=== PATIENT | male | born 1955 | race African-American/Black ===

== ENCOUNTER 2017-06-25 18:54 | Emergency (ER) | payer OTHER, SELFPAY ==
[2017-06-25] MEDS ORDERED: Ibuprofen 200 MG TAB ONE (19:35)
[2017-06-25] MEDS ORDERED: Acetaminophen 500 MG TAB ONE (19:35)
--- NOTE | 2017-06-25 21:19 | RAD ---
LUMBAR SPINE THREE VIEW 06/25/17 HISTORY: Low back pain. COMPARISON: None. FINDINGS: No acute fracture. No malalignment. Mild narrowing L4-5 and L5-S1. Large anterior flowing osteophytes of L3-L5. No abnormal calcifications projecting over the renal shadows. IMPRESSION: No acute abnormality. POS: JOHN
== END 2017-06-25 20:24 | disposition home or self-care (01) ==
LOC: NAV ERS 18:54
DX: S33.5XXA Sprain of ligaments of lumbar spine, initial encounter (principal); F17.210 Nicotine dependence, cigarettes, uncomplicated; I10 Essential (primary) hypertension; Z79.899 Other long term (current) drug therapy; V89.2XXA Person injured in unspecified motor-vehicle accident, traffic, initial encounter
CPT/HCPCS: 72100

== ENCOUNTER 2023-09-03 09:19 | Emergency (ER) | payer MEDICARE, SELFPAY ==
[2023-09-03 10:29] LABS: #Eosinphils 0.2 thou/uL (0.0-0.7); #Lymphocytes 1.2 thou/uL (1.20-3.40); #Monocytes 0.5 thou/uL (0.11-0.59); #Neutrophils 1.9 thou/uL (1.40-6.50); %Basophils 1.1 % (0.0-1.0); %Eosinophils 4.1 % (0.0-10.0); %Monocytes 13.2 % (0.0-10.0); %Neutrophils 50.5 % (42.0-75.0); Hematocrit 37.4 % (42.0-52.0); Hemoglobin 12.1 g/dL (14.0-18.0); Mean Corpuscular HGB CONC 32.5 g/dL (32.0-36.0); Mean Corpuscular Volume 89.4 fl (78.0-98.0); Mean Platelet Volume 6.7 fL (7.4-10.4); Platelet Count 197 10x3/uL (130-400); RBC Distribution Width 11.6 % (11.5-14.5); Red Blood Cell (RBC) Count 4.18 mill/uL (4.70-6.10); White Blood Cell (WBC) Count 3.7 10x3/uL (4.8-10.8)
[2023-09-03 10:34] LABS: Bilirubin Negative (Negative); Blood, Urine Trace (Negative); Clarity Clear (Clear); Glucose, Urine (Dipstick) Negative (Negative); Ketone, Urine Negative (Negative); Leukocyte Negative (Negative); Nitrite Negative (Negative); Protein, Urine (Dipstick) Negative (Neg-Trace); Specific Gravity, Urine 1.015 (1.005-1.030); Urobilinogen 0.2 mg/dL (Less than 2)
[2023-09-03 10:41] LABS: Bacteria/HPF None Seen HPF (None Seen); CAUTI Indications for Culture Pelvic or flank pain; RBC/HPF 0-3 HPF (0-3); Squamous Epithelial None Seen HPF (0-3); WBC/HPF None Seen HPF (0-3)
[2023-09-03 10:42] LABS: Urine Culture Reflex No No
[2023-09-03 10:44] LABS: ALT (SGPT) 52 U/L (8-55); AST (SGOT) 40 U/L (5-34); Albumin 3.7 g/dL (3.4-4.8); Alkaline Phosphatase 58 U/L (40-110); Anion Gap 13 mmol/L (10-20); BUN (Urea Nitrogen) 20 mg/dL (8.4-25.7); Bilirubin, Total 0.9 mg/dL (0.2-1.2); Calc. Creatinine Clearance 0 mL/min (70-130); Calcium 8.9 mg/dL (7.8-10.44); Carbon Dioxide 23 mmol/L (23-31); Chloride 106 mmol/L (98-107); Estimated GFR 61; Globulin 4.1 g/dL (2.4-3.5); Glucose 100 mg/dL (80-115); Potassium 3.7 mmol/L (3.5-5.1); Protein, Total 7.8 g/dL (5.8-8.1); Sodium 138 mmol/L (136-145)
== END 2023-09-03 10:57 | disposition home or self-care (01) ==
LOC: NAV ERS 09:19
DX: I10 Essential (primary) hypertension (principal); F17.210 Nicotine dependence, cigarettes, uncomplicated; Z79.899 Other long term (current) drug therapy; Z79.82 Long term (current) use of aspirin
CPT/HCPCS: 80053; 81001; 85025; 99283

== ENCOUNTER 2024-01-09 09:49 | Emergency (ER) | payer MEDICARE, OTHER ==
[2024-01-09] MEDS ORDERED: cloNIDine 0.1 MG TAB ONE (10:19)
[2024-01-09] MEDS ORDERED: Spironolactone 25 MG TAB PO SCH (10:45)
== END 2024-01-09 12:00 | disposition home or self-care (01) ==
LOC: NAV ERS 09:49
DX: I10 Essential (primary) hypertension (principal); Z79.899 Other long term (current) drug therapy; Z79.82 Long term (current) use of aspirin; Z87.891 Personal history of nicotine dependence
CPT/HCPCS: 93005